=== PATIENT | female | born 1985 | race Caucasian/White ===

== ENCOUNTER → 2018-09-06 13:09 | Outpatient (CLI) | payer OTHER, MEDICAID, SELFPAY ==
--- NOTE | 2018-09-06 | DI.MG.S_ITS ---
BILATERAL DIGITAL DIAGNOSTIC MAMMOGRAM 3D/2D: 09/06/2018 CLINICAL: Right Axilla lump. Baseline exam. No prior exams were available for comparison. The tissue of both breasts is extremely dense, which lowers the sensitivity of mammography. There is no underlying mammographic abnormality in the imaged right axilla at site of patient's reported focal palpable abnormality. There is a 1.1 cm oval circumscribed prominent lymph node in the left axillary tail/left axilla which demonstrates possible cortical thickening on mammography. IMPRESSION: INCOMPLETE: NEEDS ADDITIONAL IMAGING EVALUATION 1) No mammographic abnormality to correlate with the site of the patient's reported focal palpable abnormality. Targeted diagnostic ultrasound recommended for further evaluation. 2) 1.1 cm oval circumscribed prominent lymph node in the left axillary tail/left axilla which demonstrates possible cortical thickening on mammography. Targeted diagnostic ultrasound recommended for further evaluation. This exam was interpreted at Station ID: [id number]. NOTE: For mammograms, a report in lay terms will be sent to the patient. Approximately 15% of breast malignancies will not be visualized mammographically. In the management of a palpable breast mass, a negative mammogram must not discourage biopsy of a clinically suspicious lesion. Electronically Signed By: Ata Escobar M.D. ecl/:09/07/2018 08:25:21 Entry: - 09/07/2018 08:25:21 letter sent: Need Ultrasound ACR BI-RADS Category 0: Incomplete [id number]
--- NOTE | 2018-09-06 | DI.US.S_ITS ---
ULTRASOUND OF RIGHT BREAST AND AXILLA: 09/06/2018 CLINICAL: Palpable right axilla lump x 1 month. [facility] Real-time and Doppler ultrasound of the right breast axilla were performed. Duffy scale images of the real-time examination were reviewed. Targeted ultrasound was performed in the region of the patient's reported focal palpable abnormality in the right axilla. No underlying breast mass or abnormality is identified. IMPRESSION: NEGATIVE 1) No ultrasound findings to explain patient's reported focal palpable abnormality in the right axilla. Recommend clinical follow-up for further evaluation and management of the patient's reported symptoms. 2) There is no sonographic evidence of malignancy in the imaged right axilla. Return to annual screening mammography is recommended. The patient is advised to monitor her breasts and axillae and to return sooner for re-evaluation should she feel anything grow or change. This exam was interpreted at Station ID: [id number]. Electronically Signed By: Ata Escobar M.D. ecl/:09/06/2018 17:43:15 letter sent: Clinical Evaluation Ultrasound BI-RADS: 1 Negative
== END ==
PROVIDERS: PCP Nurse Practitioner Family; Visit Provider Nurse Practitioner Family
DX: Z12.31 Encounter for screening mammogram for malignant neoplasm of breast (principal)
CPT/HCPCS: 76882; 77066; G0279

== ENCOUNTER → 2018-09-14 14:10 | Outpatient (CLI) | payer OTHER, MEDICAID, SELFPAY ==
--- NOTE | 2018-09-14 | DI.US.S_ITS ---
ULTRASOUND OF LEFT BREAST AND AXILLA: 09/14/2018 CLINICAL: Follow up to prominent left axillary lymph node on mammogram, non-palpable. Comparison is made to exams dated: 09/06/2018 mammogram and 09/06/2018 [facility]. Real-time and Doppler ultrasound of the left breast axilla were performed. Duffy scale images of the real-time examination were reviewed. Targeted ultrasound of the left axilla demonstrates morphologically normal lymph nodes. The largest example left axillary lymph node measures 0.9 x 0.8 x 0.8 cm with preserved fatty hilum, no cortical thickening, and no significant vascularity on Doppler ultrasound. No other masses or abnormalities are seen in the left axilla. IMPRESSION: BENIGN No ultrasound evidence of left axillary lymphadenopathy. Annual screening mammography beginning at age 40 is recommended, unless earlier high-risk screening is warranted due to individual patient risk factors for the development of breast malignancy. The patient is advised to monitor her breasts and axillae and to return sooner for re-evaluation should she feel anything grow or change. This exam was interpreted at Station ID: [id number]. Electronically Signed By: Ata Escobar M.D. ecl/:09/14/2018 18:51:38 letter sent: Normal Exam Ultrasound BI-RADS: 2 Benign
== END ==
PROVIDERS: PCP Nurse Practitioner Family; Visit Provider Nurse Practitioner Family
DX: R92.8 Other abnormal and inconclusive findings on diagnostic imaging of breast (principal); R59.0 Localized enlarged lymph nodes
CPT/HCPCS: 76882